=== PATIENT | male | born 1955 | race African-American/Black ===

== ENCOUNTER 2016-04-08 08:41 | Emergency (ER) | payer BC ==
[~2016-04-08] VITALS: Ht 180.3 cm; Wt 102.7 kg
[~2016-04-08 08:41] MED LIST: KADIAN20 MG PO; PERCOCET 10/1 TABLET PO
[2016-04-08 09:51] LABS: EOSINOPHIL (%) 1.5 % (0-5); EOSINOPHIL COUNT 0.2 K/uL (0-0.3); HEMATOCRIT 43.9 % (38.0-50.0); IMMATURE GRANULOCYTE (%) 0.3 % (0.0-0.7); IMMATURE GRANULOCYTE COUNT 0.4 K/uL; LYMPHOCYTE COUNT 1.9 K/uL (1.0-2.8); MCH 29.6 PG (29.0-34.0); MCHC 31.7 G/DL (30.0-36.0); MCV 93.4 FL (86-99); MEAN PLAT.VOLUME 9.8 uM^3 (9.0-12.4); MONOCYTE COUNT 0.5 K/uL (0-0.8); NEUTROPHIL (%) 78.2 % (45-76); NEUTROPHIL COUNT 9.3 K/uL (1.8-6.4); PLATELET COUNT 267 K/uL (156-360); RBC DIS.WIDTH-CV 13.3 % (11.8-14.6); RBC DIS.WIDTH-SD 43.8 % (39-53); WHITE BLOOD COUNT 11.9 K/uL (4.1-10.2)
[2016-04-08 10:16] LABS: ANION GAP 9 MEQ/L (2-14); CHLORIDE 101 MEQ/L (99-109); POTASSIUM 4.6 MEQ/L (3.7-5.4); SAMPLE HEMOLYSIS CHECK 0; SAMPLE ICTERIC CHECK 0; SAMPLE LIPEMIA CHECK 0; SODIUM 137 MEQ/L (136-147); TOTAL BILIRUBIN 0.5 MG/DL (0.0-1.0)
[2016-04-08] MEDS ORDERED: PREDNISONE10 MG PO (10:19)
[2016-04-08] MEDS ORDERED: PLAVIX75 MG PO (10:19)
[2016-04-08] MEDS ORDERED: ZOCOR20 MG PO (10:20)
[2016-04-08] MEDS ORDERED: METOPROLOL SUC100 MG PO (10:20)
[2016-04-08] MEDS ORDERED: NITRO-DUR1 EAC1 TD (10:21)
[2016-04-08] MEDS ORDERED: FUROSEMIDE20 MG PO (10:21)
[2016-04-08 10:22] LABS: ALKALINE PHOSPHATASE 52 IU/L (3-129); GFR ESTIMATE (CALCULATED) > 59 mL/min/; GLUCOSE 112 mg/dL (70-99); UREA NITROGEN (BUN) 18 mg/dL (9-23)
[2016-04-08 12:47] LABS: ADD MIUA? NO; BILIRUBIN NEGATIVE; BLOOD NEGATIVE; COLOR YELLOW ((YELLOW)); GLUCOSE (STRIP) NEGATIVE; KETONES NEGATIVE; LEUKOCYTES NEGATIVE; NITRITE NEGATIVE; PROTEIN (STRIP) NEGATIVE; SPECIFIC GRAVITY 1.036 (1.000-1.030); UCUL ADDED? NO; UROBILINOGEN 0.2 MG/DL (0.2-1.0)
[2016-04-08 15:55] VITALS: BP 122/80
== END 2016-04-08 19:00 | disposition home or self-care (01) ==
LOC: EME 08:41
PROVIDERS: Nurse Practitioner Family
DX: G89.29 Other chronic pain (principal); M54.5 Low back pain; R10.9 Unspecified abdominal pain; J45.909 Unspecified asthma, uncomplicated; E78.5 Hyperlipidemia, unspecified; I10 Essential (primary) hypertension; I25.2 Old myocardial infarction; Z86.711 Personal history of pulmonary embolism; Z79.01 Long term (current) use of anticoagulants
CPT/HCPCS: 72110; 74177; 80053; 81003; 85025; 99281; 99285; J1885; J2270; J3360; J7030

== ENCOUNTER 2016-05-31 21:16 | Emergency (ER) | payer BC ==
[~2016-05-31] VITALS: Ht 180.3 cm; Wt 105.9 kg
[~2016-05-31 21:16] MED LIST changes: +FUROSEMIDE20 MG PO; +METOPROLOL SUC100 MG PO; +NITRO-DUR1 EAC1 TD; +PLAVIX75 MG PO; +PREDNISONE10 MG PO; +ZOCOR20 MG PO
[2016-06-01] MEDS ORDERED: VALIUM5 MG PO (00:09)
[2016-06-01] MEDS ORDERED: PERCOCET 5/31 TABLET PO (00:09)
[2016-06-01 01:07] VITALS: BP 160/103
== END 2016-06-01 01:08 | disposition home or self-care (01) ==
LOC: EME 21:16
DX: M54.30 Sciatica, unspecified side (principal); S39.012A Strain of muscle, fascia and tendon of lower back, initial encounter; M54.5 Low back pain; G89.29 Other chronic pain; X50.9XXA Other and unspecified overexertion or strenuous movements or postures, initial encounter
CPT/HCPCS: 72100; 99281; 99284; J1100; J1885; J2270; J2405; J3010

== ENCOUNTER 2016-06-07 18:58 | Emergency (ER) | payer BC ==
[~2016-06-07] VITALS: Ht 180.3 cm; Wt 105.0 kg
[~2016-06-07 18:58] MED LIST changes: +PERCOCET 5/31 TABLET PO; +VALIUM5 MG PO
[2016-06-07 19:01] VITALS: BP 168/85
[2016-06-07] MEDS ORDERED: PERCOCET 5/31 TABLET PO (20:11)
[2016-06-07] MEDS ORDERED: VALIUM5 MG PO (20:11)
== END 2016-06-07 20:13 | disposition home or self-care (01) ==
LOC: EME 18:58
DX: M54.5 Low back pain (principal); G89.29 Other chronic pain; I10 Essential (primary) hypertension; K50.90 Crohn's disease, unspecified, without complications
CPT/HCPCS: 99281; 99283

== ENCOUNTER 2016-07-15 21:44 | Observation (INO) | payer BC ==
[~2016-07-15] VITALS: Ht 180.3 cm; Wt 106.8 kg
[2016-07-15 22:48] LABS: HEMATOCRIT 38.3 % (38.0-50.0); MCH 27.9 PG (29.0-34.0); MCHC 31.1 G/DL (30.0-36.0); MCV 89.9 FL (86-99); MEAN PLAT.VOLUME 9.7 uM^3 (9.0-12.4); PLATELET COUNT 258 K/uL (156-360); RBC DIS.WIDTH-CV 14.2 % (11.8-14.6); RBC DIS.WIDTH-SD 46.2 % (39-53); RED BLOOD COUNT 4.26 M/uL (4.00-5.50); WHITE BLOOD COUNT 16.3 K/uL (4.1-10.2)
[2016-07-15 23:01] LABS: CHLORIDE 99 mEq/L (99-109); SODIUM 139 mEq/L (136-147)
[2016-07-15 23:03] LABS: GLUCOSE 99 mg/dL (70-99)
[2016-07-15 23:04] LABS: ANION GAP 13 MEQ/L (2-14)
[2016-07-15 23:06] LABS: GFR ESTIMATE (CALCULATED) 50 mL/min/
[2016-07-15 23:07] LABS: UREA NITROGEN (BUN) 29 mg/dL (9-23)
[2016-07-15 23:11] LABS: TROP-I INTERPRETATION NEGATIVE; TROPONIN-I < 0.01 ng/mL (0.0-0.30)
[2016-07-16] MEDS ORDERED: NITROSTAT0.4 MG SL (00:40)
[2016-07-16 05:00] VITALS: BP 142/95
[2016-07-16 06:31] LABS: INTER. NORMALIZED RATIO 1.2; PROTHROMBIN TIME 11.8 (9.2-11.2); PTT 25.7 (25-32)
[2016-07-16 06:57] LABS: TROP-I INTERPRETATION NEGATIVE; TROPONIN-I 0.01 ng/mL (0.0-0.30)
[2016-07-16 08:25] VITALS: BP 113/73
[2016-07-16 11:33] LABS: EOSINOPHIL COUNT 0.2 K/uL (0-0.3); HEMATOCRIT 37.2 % (38.0-50.0); IMMATURE GRANULOCYTE COUNT 0.1 K/uL; INSTRUMENT ABS NEUTROPHIL CT 8.2 K/uL; LYMPHOCYTE COUNT 2.5 K/uL (1.0-2.8); MCH 28.5 PG (29.0-34.0); MCHC 31.2 G/DL (30.0-36.0); MCV 91.4 FL (86-99); MEAN PLAT.VOLUME 9.8 uM^3 (9.0-12.4); MONOCYTE (%) 7.4 % (3-12); MONOCYTE COUNT 0.9 K/uL (0-0.8); NEUTROPHIL (%) 68.2 % (45-76); NEUTROPHIL COUNT 8.2 K/uL (1.8-6.4); PLATELET COUNT 252 K/uL (156-360); RBC DIS.WIDTH-CV 14.2 % (11.8-14.6); RBC DIS.WIDTH-SD 47.8 % (39-53); RED BLOOD COUNT 4.07 M/uL (4.00-5.50)
[2016-07-16 11:56] LABS: ALKALINE PHOSPHATASE 48 IU/L (3-129); ANION GAP 10 MEQ/L (2-14); CHLORIDE 99 MEQ/L (99-109); GFR ESTIMATE (CALCULATED) > 59 mL/min/; GLUCOSE 109 mg/dL (70-99); POTASSIUM 4.1 MEQ/L (3.7-5.4); SAMPLE HEMOLYSIS CHECK 0; SAMPLE ICTERIC CHECK 0; SAMPLE LIPEMIA CHECK 0; SODIUM 135 MEQ/L (136-147); TOTAL BILIRUBIN 0.5 MG/DL (0.0-1.0); UREA NITROGEN (BUN) 27 mg/dL (9-23)
[2016-07-16 11:59] LABS: TROP-I INTERPRETATION NEGATIVE; TROPONIN-I 0.01 ng/mL (0.0-0.30)
[2016-07-16 14:57] LABS: ADD MIUA? NO; BILIRUBIN NEGATIVE; BLOOD NEGATIVE; COLOR YELLOW ((YELLOW)); GLUCOSE (STRIP) NEGATIVE; KETONES NEGATIVE; LEUKOCYTES NEGATIVE; NITRITE NEGATIVE; PROTEIN (STRIP) NEGATIVE; SPECIFIC GRAVITY 1.015 (1.000-1.030); UCUL ADDED? NO; UROBILINOGEN 0.2 MG/DL (0.2-1.0)
[2016-07-16 15:48] VITALS: BP 137/90
[2016-07-16 17:53] LABS: INFLUENZA A VIRAL ANTIGEN NEGATIVE; INFLUENZA B VIRAL ANTIGEN NEGATIVE
[2016-07-16] MEDS ORDERED: MORPHINE SULFAT20 M1 PO (19:17)
[2016-07-16 21:50] VITALS: BP 137/67
[2016-07-17 05:00] VITALS: BP 146/88
[2016-07-17 07:13] VITALS: BP 111/73
[2016-07-17 07:28] LABS: MCH 27.7 PG (29.0-34.0); MCHC 30.3 G/DL (30.0-36.0); MCV 91.6 FL (86-99); MEAN PLAT.VOLUME 9.9 uM^3 (9.0-12.4); PLATELET COUNT 240 K/uL (156-360); RBC DIS.WIDTH-CV 14.2 % (11.8-14.6); RBC DIS.WIDTH-SD 47.9 % (39-53); RED BLOOD COUNT 4.04 M/uL (4.00-5.50); WHITE BLOOD COUNT 11.5 K/uL (4.1-10.2)
[2016-07-17 07:41] LABS: INTERNAL CONTROL VALID? YES
[2016-07-17 07:52] LABS: ALKALINE PHOSPHATASE 51 IU/L (3-129); ANION GAP 10 MEQ/L (2-14); CHLORIDE 99 MEQ/L (99-109); GFR ESTIMATE (CALCULATED) 53 mL/min/; GLUCOSE 129 mg/dL (70-99); POTASSIUM 4.5 MEQ/L (3.7-5.4); SAMPLE HEMOLYSIS CHECK 0; SAMPLE ICTERIC CHECK 0; SAMPLE LIPEMIA CHECK 0; SODIUM 135 MEQ/L (136-147); UREA NITROGEN (BUN) 32 mg/dL (9-23)
[2016-07-17 07:54] LABS: TOTAL BILIRUBIN 0.3 MG/DL (0.0-1.0)
[2016-07-17] MEDS ORDERED: ELIQUIS5 MG PO ×2 (12:04→12:08)
[2016-07-17 12:10] VITALS: BP 142/86
[2016-07-17] MEDS ORDERED: PLAVIX75 MG PO (12:14)
[2016-07-17] MEDS ORDERED: PERCOCET 5/31 TABLET PO (12:46)
[2016-07-17] MEDS ORDERED: TRAMADOL HCL50 MG PO (12:46)
[2016-07-17] MEDS ORDERED: METOPROLOL SUC100 MG PO (12:47)
[2016-07-17] MEDS ORDERED: ZOCOR20 MG PO (12:47)
[2016-07-17] MEDS ORDERED: PREDNISONE10 MG PO (12:48)
[2016-07-17] MEDS ORDERED: NITROSTAT0.4 MG SL (12:49)
== END 2016-07-17 13:03 | disposition home or self-care (01) ==
LOC: RME 21:44 → EME 21:44 → EDOF 07-16 02:54 → 5WEST 07-16 04:02
PROVIDERS: Internal Medicine; Student in an Organized Health Care Education/Training Program
DX: R07.2 Precordial pain (principal); I82.431 Acute embolism and thrombosis of right popliteal vein; I82.491 Acute embolism and thrombosis of other specified deep vein of right lower extremity; N17.9 Acute kidney failure, unspecified; I13.0 Hypertensive heart and chronic kidney disease with heart failure and stage 1 through stage 4 chronic kidney disease, or unspecified chronic kidney disease; N18.9 Chronic kidney disease, unspecified; I50.9 Heart failure, unspecified; E11.9 Type 2 diabetes mellitus without complications; G89.29 Other chronic pain; M54.9 Dorsalgia, unspecified; I25.2 Old myocardial infarction; E78.5 Hyperlipidemia, unspecified; J45.909 Unspecified asthma, uncomplicated; I25.10 Atherosclerotic heart disease of native coronary artery without angina pectoris; K50.90 Crohn's disease, unspecified, without complications; M19.90 Unspecified osteoarthritis, unspecified site; Z95.5 Presence of coronary angioplasty implant and graft; Z86.711 Personal history of pulmonary embolism; E66.9 Obesity, unspecified; Z68.32 Body mass index [BMI] 32.0-32.9, adult; Z87.891 Personal history of nicotine dependence
CPT/HCPCS: 71020; 71250; 74176; 78582; 80048; 80053; 81003; 83605; 84484; 85025; 85027; 85610; 85730; 87040; 87449; 87502; 93005; 93041; 93970; 99281; 99285; A9539; A9540; G0378; J0696; J1200; J1885; J2270; J2405; J7040; J7050; J7512